=== PATIENT | female | born 1970 | race African-American/Black ===

== ENCOUNTER 2017-09-01 15:33 | Emergency (ER) | payer OTHER ==
[~2017-09-01] VITALS: Ht 154.9 cm; Wt 77.3 kg
[~2017-09-01 15:33] MED LIST: IBUP-2275
[2017-09-01] MEDS ORDERED: ONDANSETRON HCL 4 MG TABLET PO ONE (16:00)
[2017-09-01] MEDS ORDERED: IBUPROFEN 600 MG TABLET PO ONE (16:00)
[2017-09-01 16:19] LABS: INFLUENZA TYPE A NEGATIVE FOR TYPE A (NEGATIVE); INFLUENZA TYPE B NEGATIVE FOR TYPE B (NEGATIVE)
[2017-09-01 17:00] VITALS: BP 120/78
== END 2017-09-01 17:05 | disposition home or self-care (01) ==
LOC: EMS 15:34
DX: J06.9 Acute upper respiratory infection, unspecified (principal); R11.2 Nausea with vomiting, unspecified; M79.1 Myalgia; G43.909 Migraine, unspecified, not intractable, without status migrainosus; Z77.22 Contact with and (suspected) exposure to environmental tobacco smoke (acute) (chronic)
CPT/HCPCS: 87804; 99284; Q0162

== ENCOUNTER 2017-11-06 07:13 | Emergency (ER) | payer OTHER ==
[~2017-11-06] VITALS: Ht 154.9 cm; Wt 79.5 kg
[2017-11-06 08:24] VITALS: BP 144/93
== END 2017-11-06 08:25 | disposition home or self-care (01) ==
LOC: EMS 07:23
DX: L03.012 Cellulitis of left finger (principal); Z77.22 Contact with and (suspected) exposure to environmental tobacco smoke (acute) (chronic)
CPT/HCPCS: 99283

== ENCOUNTER 2019-09-13 18:55 | Emergency (ER) | payer SELFPAY ==
[~2019-09-13] VITALS: Ht 154.9 cm; Wt 86.0 kg
[2019-09-13 19:35] VITALS: BP 129/60
== END 2019-09-13 20:06 | disposition home or self-care (01) ==
LOC: EMS 19:00
DX: J06.9 Acute upper respiratory infection, unspecified (principal); F17.210 Nicotine dependence, cigarettes, uncomplicated
CPT/HCPCS: 99406

== ENCOUNTER 2020-05-09 05:45 | Emergency (ER) | payer MEDICAID ==
[~2020-05-09] VITALS: Ht 154.9 cm; Wt 74.5 kg
[2020-05-09 06:33] LABS: COVID AG,FIA SOURCE NASOPHARYNGEAL
[2020-05-09 07:18] LABS: INFLUENZA TYPE A NEGATIVE FOR TYPE A (NEGATIVE); INFLUENZA TYPE B NEGATIVE FOR TYPE B (NEGATIVE)
[2020-05-09 07:36] VITALS: BP 138/80
== END 2020-05-09 07:55 | disposition home or self-care (01) ==
LOC: EMS 05:48
DX: U07.1 COVID-19 (principal); R50.9 Fever, unspecified; M79.10 Myalgia, unspecified site; R11.0 Nausea; G43.909 Migraine, unspecified, not intractable, without status migrainosus; Z77.22 Contact with and (suspected) exposure to environmental tobacco smoke (acute) (chronic)
CPT/HCPCS: 87426; 87804; 99283; U0003